=== PATIENT | male | born 1995 | race Caucasian/White ===

== ENCOUNTER 2020-07-22 19:18 | Emergency (ER) | payer OTHER ==
[~2020-07-22] VITALS: Ht 190.5 cm; Wt 108.9 kg
--- OUTSIDE RECORDS SUMMARY | ~2020-07-22 | XMS | Encounter Summary ---
Demographics + + + | Address | [address] | | | [place] [address] | + + + | Home Phone | | + + + | Preferred Language | Unknown | + + + | Marital Status | Single | + + + | Faith Affiliation | Unknown | + + + | Race | White | + + + | Ethnic Group | Unknown | + + + Author + + + | Author | [facility] | | | and [place] | + + + | Organization | [facility] | | | and [place] | + + + | Address | Unknown | + + + | Phone | Unavailable | + + + Care Team Providers + +------+ + | Care Client Hr Manager Name | Role | Phone | + +------+ + | Michelle Stein MD | PCP | | + +------+ + Encounter Details +--------+ + + + + | Date | Type | Department | Care Team | Description | +--------+ + + + + | 02/28/ | Orders Only | [facility] | Gomez Wilder | | | 2015 | | [facility] | [address] | | | | | [address] | [facility] | | | | | [place], [place] | [place] [address] | | | | | [address] | [phone] | | | | | [phone] | | | +--------+ + + + [...] | | | | | by [facility] [place] [facility], | | | | | | [facility] ([id number]), | | | | | | food expeditor Papa Salcido | | | | | [...]
--- OUTSIDE RECORDS SUMMARY | ~2020-07-22 | XMS | Encounter Summary ---
Demographics + + + | Address | [address] | | | [place] [address] | + + + | Home Phone | | + + + | Preferred Language | Unknown | + + + | Marital Status | Single | + + + | Anglican Affiliation | Unknown | + + + | Race | White | + + + | Ethnic Group | Unknown | + + + Author + + + | Author | [facility] | | | and [place] | + + + | Organization | [facility] | | | and [place] | + + + | Address | Unknown | + + + | Phone | Unavailable | + + + Care Team Providers + +------+ + | Care Preschool Program Director Name | Role | Phone | + [...] [address] | | | | | [place], [place] | [place] [address] | | | | | [address] | [phone] | | | | | [phone] | | | +--------+ + + + [...] arch are normal. MEASUREMENTS | | | Cellular Phone Repairer: ZHEN Authenticated by: Gomez Wilder DO Report [...] aortic arch are normal. MEASUREMENTS | | Cellular Phone Repairer: ZHENAutshaditicated by: Gomez Haywood Date/Time: 03-12-2016 23:46:56 [...] | |MEASUREMENTS | | | | | |Cellular Phone Repairer: DBS | |Authenticated by: Gomez Wilder DO | |Report Date/Time: 03-12-2016 23:46:56 | | | |IMPRESSION: | |1. Essentially normal study. | |2. See Dictation | + + documented in this encounter Visit Diagnoses Not on filedocumented in this encounter"
--- OUTSIDE RECORDS SUMMARY | ~2020-07-22 | XMS | Clinical Summary ---
Demographics + + + | Address | [address] | | | [place] [address] | + + + | Home Phone | | + + + | Preferred Language | Unknown | + + + | Marital Status | Single | + + + | Cheondoism Affiliation | Unknown | + + + | Race | White | + + + | Ethnic Group | Unknown | + + + Author + + + | Author | [facility] | | | and [place] | + + + | Organization | [facility] | | | and [place] | + + + | Address | Unknown | + + + | Phone | Unavailable | + + + Care Team Providers + +------+ + | Care Dot Compliance Coordinator Name | Role | Phone | + [...]
[~2020-07-22 19:18] MED LIST: NORCO 5-325 TA1 EACH PO
[2020-07-22] MEDS ORDERED: BACTRIM DS TAB1 EACH PO (19:50)
== END 2020-07-22 20:04 | disposition home or self-care (01) ==
LOC: ED 19:18
DX: S80.861A Insect bite (nonvenomous), right lower leg, initial encounter (principal); L08.9 Local infection of the skin and subcutaneous tissue, unspecified; W57.XXXA Bitten or stung by nonvenomous insect and other nonvenomous arthropods, initial encounter
CPT/HCPCS: 99283

== ENCOUNTER 2020-09-16 20:45 | Emergency (ER) | payer OTHER ==
[~2020-09-16] VITALS: Ht 190.5 cm; Wt 108.9 kg
--- OUTSIDE RECORDS SUMMARY | ~2020-09-16 | XMS | Encounter Summary ---
Demographics + + + | Address | [address] | | | [place] [address] | + + + | Home Phone | | + + + | Preferred Language | Unknown | + + + | Marital Status | Single | + + + | Episcopal Affiliation | Unknown | + + + | Race | White | + + + | Ethnic Group | Unknown | + + + Author + + + | Author | [facility] | | | and [place] | + + + | Organization | [facility] | | | and [place] | + + + | Address | Unknown | + + + | Phone | Unavailable | + + + Care Team Providers + +------+ + | Care Transition Mgr Name | Role | Phone | + +------+ + | Michelle Stein MD | PCP | | + +------+ + Encounter Details +--------+ + + + + | Date | Type | Department | Care Team | Description | +--------+ + + + + | 03/12/ | Orders Only | [facility] | Gomez Wilder | | | 2015 | | [address] | [address] | | | | | [place] | [place] [address] | | | | | [place], [place] | [place] [address] | | | | | [address] | [phone] | | | | | [phone] | | | +--------+ + + + + Social History + +-------+ +--------+------+ | Tobacco Use | Types | Packs/Day | Years | Date | | | | | Used | | + +-------+ +--------+------+ | Never Smoker | | | | | + +-------+ +--------+------+ + + + | Sex Assigned at | Date Recorded | | | | + + + | Not on file | | + + + documented as of this encounter Plan of Treatment Not on filedocumented as of this encounter Procedures + +--------+ + + + | Procedure Name | Priori | Date/Time | Associated Diagnosis | Comments | | | ty | | | | + +--------+ + + + | ECHO INTERPRETATION | Routin | 03/12/2016 | | Results for this | | OF OUTSIDE FILMS | e | 3:47 PM | | procedure are in the | | | | PDT | | results section. | + +--------+ + + + documented in this encounter Results ECHO Interpretation of Outside Films (03/12/2016 3:47 PM PDT) + + | Specimen | + + | | + + + + + | Impressions | Performed At | + + + | 1. Essentially normal study. 2. See Dictation | | + + + + + + | Narrative | Performed At | + + + | Patient Name: Jason Ortiz Date of : 1995 | | | Performing Physician: Gomez Wilder DO | | | | | | INDICATIONS murmur CONCLUSIONS 1. | | | Essentially normal study. 2. See Dictation FINDINGS -------- | | | ECG rhythm: Sinus rhythm. Study: This was a technically adequate | | | study. Left Ventricle: Left ventricular systolic function is | | | hyperdynamic with an estimated EF of >70%. Left Ventricle: The left | | | ventricle cavity size is normal. Left Ventricle: Left ventricular | | | wall thickness is normal. Left Ventricle: The diastolic filling | | | pattern is normal for the age of the patient. Right Ventricle: The | | | right ventricle is normal in size and function. Left Atrium: The left | | | atrium is normal in size. Right Atrium: The right atrium is normal | | | in size. Aortic Valve: The aortic valve is trileaflet, and appears | | | anatomically normal. No aortic stenosis or regurgitation. Mitral | | | Valve: The mitral valve is normal. Mitral Valve: There is trace | | | mitral regurgitation. Tricuspid Valve: The tricuspid valve appears | | | structurally normal. Tricuspid Valve: Trace tricuspid regurgitation | | | present. Pulmonic Valve: Pulmonic valve appears structurally normal. | | | Pulmonic Valve: Trace pulmonic regurgitation. Pericardium: There | | | is no pericardial effusion. IVC/Hepatic Veins: The IVC is normal size | | | (1.5-2.5cm) and collapses >50% with sniff, consistent with central | | | venous pressures of 5-10mmHg. Aorta: The aortic root, ascending aorta | | | and aortic arch are normal. MEASUREMENTS | | | Transmission Systems Operator: ZHEN Authenticated by: Gomez Wilder DO Report | | | Date/Time: 03-12-2016 23:46:56 | | + + + + + | Procedure Note | + + | Jl Lockett Conversion - 07/16/2019 9:18 PM PDT Patient Name: Michelle OrtizSanjeev of | | : 1995 Performing Physician: Gomez Wilder | | DO INDICATIONS m | | urmur CONCLUSIONS 1. Essentially normal study.2. See Dictation | | FINDINGS--------ECG rhythm: Sinus rhythm.Study: This was a technically adequate | | study.Left Ventricle: Left ventricular systolic function is hyperdynamic with an | | estimated EF of >70%.Left Ventricle: The left ventricle cavity size is normal.Left | | Ventricle: Left ventricular wall thickness is normal.Left Ventricle: The diastolic | | filling pattern is normal for the age of the patient.Right Ventricle: The right | | ventricle is normal in size and function.Left Atrium: The left atrium is normal in | | size.Right Atrium: The right atrium is normal in size.Aortic Valve: The aortic valve is | | trileaflet, and appears anatomically normal. No aortic stenosis or regurgitation.Mitral | | Valve: The mitral valve is normal.Mitral Valve: There is trace mitral | | regurgitation.Tricuspid Valve: The tricuspid valve appears structurally normal.Tricuspid | | Valve: Trace tricuspid regurgitation present.Pulmonic Valve: Pulmonic valve appears | | structurally normal.Pulmonic Valve: Trace pulmonic regurgitation.Pericardium: There is | | no pericardial effusion.IVC/Hepatic Veins: The IVC is normal size (1.5-2.5cm) and | | collapses >50% with sniff, consistent with central venous pressures of 5-10mmHg.Aorta: | | The aortic root, ascending aorta and aortic arch are normal. MEASUREMENTS | | Transmission Systems Operator: ZHENAutshaditicated by: Gomez Haywood Date/Time: 03-12-2016 23:46:56 | | IMPRESSION: 1. Essentially normal study.2. See Dictation | |Left Ventricle: Left ventricular systolic function is hyperdynamic with an estimated EF of >70%. | |Left Ventricle: The left ventricle cavity size is normal. | |Left Ventricle: Left ventricular wall thickness is normal. | |Left Ventricle: The diastolic filling pattern is normal for the age of the patient. | |Right Ventricle: The right ventricle is normal in size and function. | |Left Atrium: The left atrium is normal in size. | |Right Atrium: The right atrium is normal in size. | |Aortic Valve: The aortic valve is trileaflet, and appears anatomically normal. No aortic st enosis or regurgitation. | |Mitral Valve: The mitral valve is normal. | |Mitral Valve: There is trace mitral regurgitation. | |Tricuspid Valve: The tricuspid valve appears structurally normal. | |Tricuspid Valve: Trace tricuspid regurgitation present. | |Pulmonic Valve: Pulmonic valve appears structurally normal. | |Pulmonic Valve: Trace pulmonic regurgitation. | |Pericardium: There is no pericardial effusion. | |IVC/Hepatic Veins: The IVC is normal size (1.5-2.5cm) and collapses >50% with sniff, consis tent with central venous pressures of 5-10mmHg. | |Aorta: The aortic root, ascending aorta and aortic arch are normal. | | | |MEASUREMENTS | | | | | |Transmission Systems Operator: DBS | |Authenticated by: Gomez Wilder DO | |Report Date/Time: 03-12-2016 23:46:56 | | | |IMPRESSION: | |1. Essentially normal study. | |2. See Dictation | + + documented in this encounter Visit Diagnoses Not on filedocumented in this encounter"
--- OUTSIDE RECORDS SUMMARY | ~2020-09-16 | XMS | Encounter Summary ---
Demographics + + + | Address | [address] | | | [place] [address] | + + + | Home Phone | | + + + | Preferred Language | Unknown | + + + | Marital Status | | + + + | Shinto Affiliation | NRP | + + + | Race | White | + + + | Ethnic Group | Not or | + + + Author + + + | Organization | Unknown | + + + | Address | Unknown | + + + | Phone | Unavailable | + + + Support + + +---------+ + | Name | Relationship | Address | Phone | + + +---------+ + | Stefanie Ortiz | ECON | Unknown | | + + +---------+ + Care Team Providers + +------+ + | Care Automotive Starter Repairer Name | Role | Phone | + +------+ + | No Pcp Per Patient | PCP | Unavailable | + +------+ + Encounter Details +--------+--------+ + + + | Date | Type | Department | Care Team | Description | +--------+--------+ + + + | 08/02/ | Travel | | | | | 2019 | | | | | +--------+--------+ + + + Social History + +-------+ +--------+------+ | Tobacco Use | Types | Packs/Day | Years | Date | | | | | Used | | + +-------+ +--------+------+ | Never Smoker | | | | | + +-------+ +--------+------+ + +---+---+---+ | Smokeless Tobacco: | | | | | Never Used | | | | + +---+---+---+ + + +---------+ + | Alcohol Use | Drinks/Week | oz/Week | Comments | + + +---------+ + | Never | | | | + + +---------+ + + + + + | Alcohol Habits | Answer | Date Recorded | + + + + | How often do you have a drink containing | Never | 06/26/2019 | | alcohol? | | | + + + + | How many drinks containing alcohol do you | Not asked | | | have on a typical day when you are | | | | drinking? | | | + + + + | How often do you have six or more drinks on | Not asked | | | one occasion? | | | + + + + + + + | Sex Assigned at | Date Recorded | | | | + + + | Not on file | | + + + documented as of this encounter Plan of Treatment Not on filedocumented as of this encounter Visit Diagnoses Not on filedocumented in this encounter"
--- OUTSIDE RECORDS SUMMARY | ~2020-09-16 | XMS | Encounter Summary ---
Demographics + + + | Address | [address] | | | [place] [address] | + + + | Home Phone | | + + + | Preferred Language | Unknown | + + + | Marital Status | Single | + + + | Shinto Affiliation | Unknown | + + + | Race | White | + + + | Ethnic Group | Unknown | + + + Author + + + | Author | [facility] | | | and [place] | + + + | Organization | [facility] | | | and [place] | + + + | Address | Unknown | + + + | Phone | Unavailable | + + + Care Team Providers + +------+ + | Care Relief Worker Name | Role | Phone | + +------+ + | Michelle Stein MD | PCP | | + +------+ + Encounter Details +--------+ + + + + | Date | Type | Department | Care Team | Description | +--------+ + + + + | 02/28/ | Orders Only | [facility] | Gomez Wilder | | | 2015 | | [facility] | [address] | | | | | [address] | [facility] | | | | | [place], [place] | [place] [address] | | | | | [address] | [phone] | | | | | [phone] | | | +--------+ + + + [...] | + +--------+ + + + | ECG 12 LEAD | Routin | 02/29/2016 | | Results for this | | | e | 4:38 PM | | procedure are in the | | | | PDT | | results section. | + +--------+ + + + documented in this encounter Results ECG 12 lead (02/29/2016 4:38 PM PDT) + + + + + + | Component | Value | Ref Range | Performed | Pathologist | | | | | At | Signature | + + + + + + | DIAGNOSIS: | Sinus bradycardiaEarly | | EXTERNAL | | | | repolarizationOtherwise | | LAB | | | | normal ECGNo previous | | | | | | ECGs availablePlease | | | | | | refer to Providers | | | | | | office visit note for | | | | | | Providers | | | | | | Interpretation.Confirmed | | | | | | by [facility] [place] Read Only, | | | | | | [facility] ([id number]), | | | | | | editorial clerk Papa Salcido | | | | | | (253) on 07/02/2016 | | | | | | 12:49:13 PM | | | | + + + + + + + + | Specimen | + + | | + + + + + | Narrative | Performed At | + + + | Historically converted procedure from [facility] [employer] environment | EXTERNAL LAB | + + + + +---------+ + + | Performing | Address | City/State/Zipcode | Phone Number | | Organization | | | | + +---------+ + + | EXTERNAL LAB | | | | + +---------+ + + documented in this encounter Visit Diagnoses Not on filedocumented in this encounter"
--- OUTSIDE RECORDS SUMMARY | ~2020-09-16 | XMS | Clinical Summary ---
Demographics + + + | Address | [address] | | | [place] [address] | + + + | Home Phone | | + + + | Preferred Language | Unknown | + + + | Marital Status | Single | + + + | Taoist Affiliation | Unknown | + + + | Race | White | + + + | Ethnic Group | Unknown | + + + Author + + + | Author | [facility] | | | and [place] | + + + | Organization | [facility] | | | and [place] | + + + | Address | Unknown | + + + | Phone | Unavailable | + + + Care Team Providers + +------+ + | Care Music Therapist Name | Role | Phone | + +------+ + | Michelle Stein MD | PCP | | + +------+ + Allergies Not on File Medications Not on file Active Problems Not on file Family History + + +------+ + | Medical History | Relation | Name | Comments | + + +------+ + | Cancer | Maternal | | | | | Grandfath | | | | | er | | | + + +------+ + | Hypertension | Maternal | | | | | Grandmoth | | | | | er | | | + + +------+ + | Cancer | Paternal | | | | | Grandmoth | | | | | er | | | + + +------+ + | Diabetes, NIDDM | Paternal | | | | | Grandmoth | | | | | er | | | + + +------+ + | Heart disease | Paternal | | | | | Grandmoth | | | | | er | | | + + +------+ + + +------+ + + | Relation | Name | Status | Comments | + +------+ + + | Father | | | DMII,cirrhosis of liver, (alcoholism), HTN | | | | (Age | | | | | 49) | | + +------+ + + | Maternal Grandfather | | Alive | prostate cancer | + +------+ + + | Maternal Grandfather | | | | + +------+ + + | Maternal Grandmother | | Alive | HTN | + +------+ + + | Maternal Grandmother | | | | + +------+ + + | Mother | | Alive | 43 yrs., Migraine Headaches | + +------+ + + | Paternal Grandfather | | | Parkinsons Disease | | | | (Age | | | | | 72) | | + +------+ + + | Paternal Grandmother | | | Lung Cancer (smoker),DMII, heart disease | | | | (Age | | | | | 77) | | + +------+ + + | Paternal Grandmother | | | | + +------+ + + Social History + +-------+ +--------+------+ [...] on file | | + + + Last Filed Vital Signs + + + + + | Vital Sign | Reading | Time Taken | Comments | + + + + + | Blood Pressure | 126/58 | 02/29/2016 4:14 PM | | | | | PDT | | + + + + + | Pulse | 58 | 02/29/2016 4:14 PM | | | | | PDT | | + + + + + | Temperature | - | - | | + + + + + | Respiratory Rate | 16 | 02/29/2016 4:14 PM | | | | | PDT | | + + + + + | Oxygen Saturation | - | - | | + + + + + | Inhaled Oxygen | - | - | | | Concentration | | | | + + + + + | Weight | 95.3 kg (210 lb) | 02/29/2016 4:14 PM | | | | | PDT | | + + + + + | Height | 185.4 cm (6' 1") | 02/29/2016 4:14 PM | | | | | PDT | | + + + + + | Body Mass Index | 27.71 | 02/29/2016 4:14 PM | | | | | PDT | | + + + + + Plan of Treatment + + +-------+ + | Health Maintenance | Due Date | Last | Comments | | | | Done | | + + +-------+ + | Vaccine: | | | | | Dtap/Tdap/Td (1 - | 7 | | | | Tdap) | | | | + + +-------+ + | Vaccine: Influenza | | | | | (#1) | 0 | | | + + +-------+ + Results Not on filefrom Last 3 Months
--- OUTSIDE RECORDS SUMMARY | ~2020-09-16 | XMS | Encounter Summary ---
Demographics + + + | Address | [address] | | | [place] [address] | + + + | Home Phone | | + + + | Preferred Language | Unknown | + + + | Marital Status | | + + + | Denominational Affiliation | NRP | + + + | Race | White | + + + | Ethnic Group | Not or | + + + Author + + + | Author | [facility] | + + + | Organization | [facility] | + + + | Address | Unknown | + + + | Phone | Unavailable | + + + Support + + +---------+ + | Name | Relationship | Address | Phone | + + +---------+ + | Stefanie Ortiz | ECON | Unknown | | + + +---------+ + Care Team Providers + +------+ + | Care Supervisor Patching Name | Role | Phone | + +------+ + | No Pcp Per Patient | PCP | Unavailable | + +------+ + Reason for Visit + + + | Reason | Comments | + + + | Skin problem | | + + + | Referral | | + + + AUTH/CERT +--------+--------+ + + + + | Status | Reason | Specialty | Diagnoses / | Referred By | Referred To | | | | | Procedures | Contact | Contact | +--------+--------+ + + + + | | | | | | | +--------+--------+ + + + + Encounter Details +--------+ + + + + | Date | Type | Department | Care Team | Description | +--------+ + + + + | 06/26/ | Emergency | [facility] Emergency | Wilfred Davis MD | | | 2019 | | Department [address] | [address] | | | | | [place] | [facility] | | | | | [facility] | [place], [place] | | | | | [place], [place] | [address] | | | | | [address] | [phone] | | | | | [phone] | | | | | | | Delfina Yun, | | | | | | [place] [address] | | | | | | [facility] | | | | | | [place], [place] | | | | | | [address] | | | | | | [phone] | | | | | | | | +--------+ + + + [...] + + documented as of this encounter Last Filed Vital Signs + + + + + | Vital Sign | Reading | Time Taken | Comments | + + + + + | Blood Pressure | 116/64 | 06/26/2019 6:46 PM | | | | | PDT | | + + + + + | Pulse | 93 | 06/26/2019 2:18 PM | | | | | PDT | | + + + + + | Temperature | 37.6 C (99.7 F) | 06/26/2019 6:11 PM | | | | | PDT | | + + + + + | Respiratory Rate | 16 | 06/26/2019 6:46 PM | | | | | PDT | | + + + + + | Oxygen Saturation | 100% | 06/26/2019 6:45 PM | | | | | PDT | | + + + + + | Inhaled Oxygen | - | - | | | Concentration | | | | + + + + + | Weight | 95.5 kg (210 lb 8 | 06/26/2019 2:18 PM | | | | oz) | PDT | | + + + + + | Height | 190.5 cm (6' 3") | 06/26/2019 2:18 PM | | | | | PDT | | + + + + + | Body Mass Index | 26.31 | 06/26/2019 2:18 PM | | | | | PDT | | + + + + + documented in this encounter Discharge Instructions Instructions Jennifer Kraft MD - 06/26/2019Thank you for coming to the [facility] ED. You were s een today for right elbow pain and swelling. You were seen by our orthopaedic team who felt you have olecranon bursitis. They recommended antibiotics and follow up in clinic within the next week, please call the number attached to make a follow up appointment. You are being d ischarged with keflex and bactrim, antibiotics to treat your infection. Please continue to treat your pain with ibuprofen 600mg and tylenol 650mg every 6-8 hours. You are also being discharged with a prescription for oxycodone, an opiate pain medication, for breakthrough pain. Please return either to the ED or urgent care for a wound re-evaluation tomorrow to ensure the infection has not worsened. Return sooner if you develop fevers, chills, nausea, worseni ng redness or swelling, or any other concerning symptoms. I hope you are feeling better soon ! AttachmentsThe following attachments cannot be sent through Care Everywhere.Cellulitis (Eng codie)Elbow Bursitis: Exercises (Luxembourger)documented in this encounter Medications at Time of Discharge + + + +---------+ + + | Medication | Sig | Dispensed | Refills | Start | End Date | | | | | | Date | | + + + +---------+ + + | acetaminophen 500 | Take 500 mg by mouth | | 0 | | | | mg oral tablet | every six hours as | | | | | | | needed. | | | | | + + + +---------+ + + | oxyCODONE | Take 1 tablet by | 8 | 0 | 06/26/20 | | | (immediate release) | mouth every six | tablet | | 19 | | | 5 mg oral tablet | hours as needed for | | | | | | | breakthrough pain. | | | | | + + + +---------+ + + | cephALEXin 500 mg | Take 1 capsule by | 28 | 0 | 06/26/20 | | | oral capsule | mouth every six | capsule | | 19 | 9 | | | hours for 7 days. | | | | | + + + +---------+ + + | | Take 1 tablet by | 14 | 0 | 06/26/20 | | | trimethoprim-sulfame | mouth two times | tablet | | 19 | 9 | | thoxazole 160-800 mg | daily for 7 days. | | | | | | oral tablet | | | | | | + + + +---------+ + + documented as of this encounter Consult Notes Kamryn Nelson MD - 06/26/2019 6:07 PM PDTAssociated Order(s): IP CONSULT TO ORTHOPED IC SURGERY [facility] DEPARTMENT OF ORTHOPAEDICS & REHABILITATION HISTORY & PHYSICAL EXAMINATION Patient: Jason Ortiz Encounter Date: 06/26/2019 Attending Physician: Domingo Moran MD Patient seen within 10 minutes of receiving consult HISTORY OF PRESENT ILLNESS: Jason Ortiz is a 23 y.o. M who presents with 3 days of right elbow pain, swelling, an d purulent drainage. Per patient, this began after he popped a pimple on his elbow. PAST MEDICAL HISTORY: No past medical history on file. PAST SURGICAL HISTORY: Past Surgical History: Procedure Laterality Date HYDROCELE EXCISION SOCIAL HISTORY: reports that he has never smoked. He has never used smokeless tobacco., reports that he d oes not drink alcohol., reports that he does not use drugs. MEDICATIONS: Prior to Admission Medications Prescriptions acetaminophen 500 mg oral tablet Sig: Take 500 mg by mouth every six hours as needed. Facility-Administered Medications: None ALLERGIES: has No Known Allergies. FAMILY HISTORY: not reviewed REVIEW OF SYSTEMS: A 10 point review of systems was completed and the pertinent positives and negatives are no brigitte above in the history of present illness. PHYSICAL EXAMINATION VITALS: Pulse: 93 BP: 141/78 Temp: 36.8 C (98.2 F) SpO2: 100 % Resp: 16 GENERAL: appropriate, oriented CARD/PULM: appropriate effort, not auscultated RIGHT UPPER EXTREMITY: Inspection: Erythema, edema, fluctuance over olecranon bursa. Some drainage. Swelling appea rs isolated to the posterior elbow. Palpation: tender to palpation at posterior elbow ROM: limited by pain Motor: makes OK sign, crosses and abducts fingers, gives thumbs up, fires wrist extensors, fires wrist flexors, fires biceps, fires triceps, fires deltoid Sensory: grossly intact to light touch, median, ulnar, radial, axillary Vascular: palpable radial, digits warm, well perfused, capillary refill <2 sec Reflexes: not performed LABORATORY DATA: Lab Results Component Value Date/Time NA 136 06/26/2019 02:27 PM K 4.0 06/26/2019 02:27 PM CR 0.86 06/26/2019 02:27 PM HCT 38.6 (L) 06/26/2019 02:27 PM WBC 13.04 (H) 06/26/2019 02:27 PM PLT 212 06/26/2019 02:27 PM ESR 71 (H) 06/26/2019 02:40 PM CRP 120.0 (H) 06/26/2019 02:27 PM DIAGNOSTIC IMAGING: xrays elbow, per my read demonstrate: no acute fracture/dislocation ASSESSMENT: Jason Ortiz is a 23 y.o. M with the following orthopaedic injuries/concerns: R olecra non bursitis PLAN: --abx per primary --volar resting slab splint placed for soft tissue rest --follow up within 1 week in clinic Follow up:Please call the clinic to make a follow up appointment in approximately 1 [facility] ORTHO [facility] FRACTURE, . Lydia Nelson. The orthopaedics consult pager is #[phone], please call with questions. This plan was discussed with Dr. Velazquez (resident), Dr. Oquendo (chief resident), and Dr. Abhinav palomo (attending). Kamryn Nelson MD Orthopaedic Surgery resident 7 :38 AM PDTdocumented in this encounter ED Notes Gomez Cooney RN - 06/26/2019 6:57 PM PDTRN Discharge Note: Condition at time of discharge: Patient A&O x4, vital signs stable, appears in no acute di stress and pain reported as tolerable. Patient ambulating with steady gait. Discharge instructions: Patient provided discharge instructions. Understanding of instruct ions is evidenced by review of follow-up plan and voiced understanding of plan of care. Wri tten discharge instructions provided and reviewed. Prescriptions provided and reviewed. Galina ent advised not to drive. Destination: Patient discharged to home via POV with self and significant other. Education provided to the patient/family: n/a Char Royal RN - 0 06/26/2019 5:20 PM PDTOrtho at bedside at this time. Char Royal RN - 06/26/2019 4:30 PM PDTOrtho at bedside at this time. ilfred Davis MD - 06/26/2019 3:44 PM PDT ED Shared Provider Note, co-authored by Dr. Dave Kraft and WILFRED DAVIS MD: Wilfred Davis MD, EM Faculty Note: I saw and evaluated the patient, discussed the diagnosis, management, and interpretation of results with the Resident. I performed and confirmed the wall portions of the service. The n ote detailed below was created by both the resident and myself. I agree with the documentat ion findings and plan of care. I contributed to multiple sections of the shared note. HPI 23 y/o man who presents as referral for right elbow swelling. Pt states had 'a white head o n my elbow' that he 'popped' 4 days ago, after which his elbow became increasingly red and s wollen. Difficulty moving elbow and increasing pain - particularly worse last night into tod ay. Pt unable to straighten elbow, but does have approx 60 degrees movement. Using tylenol f or pain. Some chills, subjective fevers. Has been taking 4 tabs tylenol per day. Pt seen in walk-in clinic today - referred directly to ED. No abx yet. PCP: No Pcp Per PATIENT Pmhx: -none Past Surgical History Procedure Date Hydrocele excision Medications Prior to Admission Medications Prescriptions Last Dose Informant Patient Reported? Taking? acetaminophen 500 mg oral tablet 06/26/2019 at Unknown time Yes Yes Sig: Take 500 mg by mouth every six hours as needed. Facility-Administered Medications: None Allergies No Known Allergies Social History reports that he has never used tobacco. he reports that he drinks alcohol. he reports th at he uses drugs. Family History Problem Relation No Known Problems Mother Liver Disease Father No Known Problems Brother No Known Problems Brother Review of Systems Complete ROS performed and negative except as noted in HPI. ED Triage Vitals BP Temp Heart Rate Pulse - Plethysmograph Resp SpO2 06/26/19 1418 06/26/19 1418 06/26/19 1418 06/26/19 1811 06/26/19 1418 06/26/19 1418 141/78 36.8 C (!) 93 89 pulses/min 16 100 % Physical Exam Constitutional: He is oriented to person, place, and time. He appears well-developed and we ll-nourished. No distress. nontoxic HENT: Head: Normocephalic and atraumatic. Eyes: Conjunctivae and EOM are normal. Neck: Normal range of motion. Neck supple. Cardiovascular: Normal rate, regular rhythm, normal heart sounds and intact distal pulses. Pulmonary/Chest: Effort normal and breath sounds normal. No respiratory distress. Abdominal: Soft. He exhibits no distension. There is no tenderness. Musculoskeletal: Erythema, edema, tenderness, induration over posterior elbow with 0.5cm area of open draina ge. Holds elbow at 90 degrees with pain limited ROM Neurological: He is alert and oriented to person, place, and time. No cranial nerve deficit . He exhibits normal muscle tone. Skin: Skin is warm and dry. Nursing note and vitals reviewed. Lab Results Results for orders placed or performed during the hospital encounter of 06/26/19 COMPLETE METABOLIC SET (NA,K,CL,CO2,BUN,CREAT,GLUC,CA,AST,ALT,BILI TOTAL,ALK PHOS,ALB,PROT TOTAL) Result Value Ref Range GLUCOSE, PLASMA (LAB) 76 70 - 99 mg/dL BUN, PLASMA (LAB) 13 6 - 20 mg/dL CREATININE PLASMA (LAB) 0.86 0.70 - 1.30 mg/dL EGFR - LIBYAN >60 >60 mL/min EGFR NON -LIBYAN >60 >60 mL/min SODIUM, PLASMA (LAB) 136 136 - 145 mmol/L POTASSIUM, PLASMA (LAB) 4.0 3.4 - 5.0 mmol/L CHLORIDE, PLASMA (LAB) 103 97 - 108 mmol/L TOTAL CO2, PLASMA (LAB) 27 21 - 32 mmol/L CALCIUM, PLASMA (LAB) 9.7 8.6 - 10.2 mg/dL CALCIUM(ALB CORRECTED) 9.5 8.6 - 10.2 mg/dL BILIRUBIN TOTAL 0.6 0.3 - 1.2 mg/dL TOTAL PROTEIN, PLASMA (LAB) 8.4 (H) 6.4 - 8.2 g/dL ALBUMIN, PLASMA (LAB) 4.3 3.5 - 4.7 g/dL ALK PHOS 48 (L) 53 - 128 U/L AST(SGOT) 15 <=41 U/L ALT (SGPT) 25 <=60 U/L ANION GAP 6 4 - 11 mmol/L ANION GAP(ALB CORRECTED) 5 4 - 11 mmol/L POTASSIUM CMNT No Hemo BILI T CMNT No Hemo AST CMNT No Hemo BLOOD BANK HOLD TUBE - DON T PROCESS Result Value Ref Range SPECIMEN COLLECTED, HELD Sample received with adeq label/volume to process SEDIMENTATION RATE Result Value Ref Range SEDIMENTATION RATE 71 (H) 0 - 15 mm/hr C-REACTIVE PROTEIN Result Value Ref Range C-REACTIVE PROTEIN 120.0 (H) <10.0 mg/L CBC AND AUTO DIFF Result Value Ref Range WHITE CELL COUNT 13.04 (H) 3.50 - 10.80 K/cu mm RED CELL COUNT 4.33 (L) 4.50 - 6.00 M/cu mm HEMOGLOBIN 13.2 (L) 13.5 - 17.5 g/dL HEMATOCRIT 38.6 (L) 41.0 - 53.0 % MCV 89.1 80.0 - 100.0 fL MCHC 34.2 32.0 - 36.0 g/dL RDW SD 37.1 35.1 - 46.3 fL PLATELET COUNT 212 150 - 400 K/cu mm MPV 9.4 (L) 9.7 - 12.3 fL NRBC% 0.0 0.0 - 0.3 % NRBC# 0.00 0.00 - 0.02 K/cu mm NEUTROPHIL % 77.7 (H) 50.0 - 70.0 % LYMPHOCYTE % 12.3 (L) 18.0 - 42.0 % MONOCYTE % 9.3 (H) 3.5 - 9.0 % EOS % 0.1 (L) 1.0 - 3.0 % BASO % 0.2 0.0 - 2.0 % IG% 0.4 0.0 - 1.0 % NEUTROPHIL # 10.15 (H) 1.80 - 7.70 K/cu mm LYMPHOCYTE # 1.60 1.00 - 4.80 K/cu mm MONOCYTE # 1.21 (H) 0.10 - 0.90 K/cu mm EOS # 0.01 0.00 - 0.50 K/cu mm BASO # 0.02 0.00 - 0.10 K/cu mm IG# 0.05 0.00 - 0.10 K/cu mm Imaging Results (last 24 hours) X-ray Elbow 3 Views Right Result Date: 06/26/2019 EXAM: ELBOW 3 VIEWS RIGHT HISTORY: concern for septic joint, swelling and pain to area CO MPARISON: None. FINDINGS: There is diffuse soft tissue swelling about the upper arm, elbow and forearm. No radiodense foreign bodies. No significant elbow joint effusion. No acute fr acture or malalignment. No radiographic evidence of erosions. IMPRESSION: Diffuse soft tis karon swelling without superimposed acute osseous abnormality or elbow joint effusion. I have personally reviewed the images and, if necessary, edited the report. I agree with the repor t as now presented. Final signature: Levi Petersen MD 06/26/2019 3:24 PM Preliminary: Jermaine Petersen MD Dictation initiated: Levi Petersen MD 06/26/2019 3:23 PM Crime Prevention Worker: ortho. ED COURSE AND MEDICAL DECISION MAKING: Medical Decision Making: Jason Ortiz is a 23 y.o. male presenting with right elbow redness and swelling. Marleny ls notable for mild tachycardia, BP wnl, afebrile. The physical exam was notable for the following: as above, non toxic with right posterior e lbow diffusely erythematous and edematous with pain limited ROM. A review of some of patient s prior medical records was performed using chart review and Care Everywhere. Given the patient's history and exam, initial differential diagnosis includes but is not li mited to: cellulitis, abscess, olecranon bursitis, septic elbow. Will plan to obtain XR, labs, and consult ortho. Laboratory and imaging results were reviewed and interpreted, and notable for the following : ED Course as of Jun 27 1123SatJun 26, 2019 1605 Right Elbow XR FINDINGS: There is diffuse soft tissue swelling about the upper arm, elbow and forearm. No radiodense foreign bodies. No significant elbow joint effusion. No acute fracture or malalignment. No radiographic evidence of erosions. IMPRESSION: Diffuse soft tissue swelling without superimposed acute osseous abnormality or elbow joint effusion. [HW] 1605 SEDIMENTATION RATE(!): 71 [HW] 1605 WHITE CELL COUNT(!): 13.04 [HW] 1607 CMP with no acute electrolyte abnormality, renal function WNL [HW] 1617 Consulted ortho, will evaluate patient [HW] 1713 Ortho feels presentation is most consistent with olecranon bursitis. Agree with ED obs admission for IV abx [HW] 1808 Offered patient ED observation admission. He discussed this with his , and they de cided that he would like to discharge home with antibiotics and pain medication with follow up with ortho clinic. [HW] ED Course User Index [HW] Jennifer Kraft MD We opted not to perform an arthrocentesis, as lower suspicion of septic joint and erythema throughout elbow (risk of seeding joint exceed probability of benefit of tap). After orthopedic consultation, our plan was to admit the patient to the ED observation unit for multiple doses of IV antibiotics and reevaluation for clinical improvement. Initial IV abx given in ED. However, the patient did not want to be admitted to the hospital and accep brigitte the accordant risks of oral abx and home management. Discussed findings with patient, an d management with bactrim and kelfex. Discussed strict return precautions and need for close follow up, advised patient to return to the ED within 24 hours, so I can perform wound re-c heck, and follow up in ortho clinic within 1 week. Patient voiced understanding and was comf ortable with discharge at this time. Repeat vitals: BP 116/64 | Pulse (!) 93 | Temp 37.6 C (Oral) | Resp 16 | Ht 1.905 m ( 6' 3") | Wt 95.5 kg (210 lb 8 oz) | SpO2 100% | BMI 26.31 kg/m | BSA 2.25 m Given this, we felt patient was stable for discharge. ED Medication Administration from 06/26/2019 1410 to 06/27/2019 1123 Date/Time Order Dose Route Action 06/26/2019 1752 ceFAZolin IV 2 gram in dextrose (RTU) 2 g intravenous New Bag 06/26/2019 1630 HYDROmorphone (DILAUDID) injection 0.5 mg 0.5 mg intravenous Given 06/26/2019 1843 HYDROmorphone (DILAUDID) injection 0.5 mg 0.5 mg intravenous Given 06/26/2019 1628 lactated ringers IV 1,000 mL intravenous New Bag 06/26/2019 1629 ondansetron (ZOFRAN) injection 4 mg 4 mg intravenous Given 06/26/2019 1749 trimethoprim-sulfamethoxazole (BACTRIM DS,SEPTRA DS) 160-800 mg tablet 1 t ablet 1 tablet oral Given IMPRESSION: M70.21 Olecranon bursitis of right elbow L03.113 Cellulitis of right upper extremity PLAN, DISPOSITION AND FOLLOW-UP: - discharge - bactrim, keflex - wound re-eval tomorrow - follow up with ortho within 1 week Discharge Medication List as of 06/26/2019 6:46 PM START taking these medications Details cephALEXin 500 mg oral capsule Take 1 capsule by mouth every six hours for 7 days., Disp-28 capsule, R-0, Print Prescription oxyCODONE (immediate release) 5 mg oral tablet Take 1 tablet by mouth every six hours as ne eded for breakthrough pain., Disp-8 tablet, R-0Schedule IIPrint Prescription trimethoprim-sulfamethoxazole 160-800 mg oral tablet Take 1 tablet by mouth two times daily for 7 days., Disp-14 tablet, R-0, Print Prescription Jennifer Kraft MD Emergency Medicine PGY-3 Wilfred Davis MD, MPH Professor, Department of Emergency Medicine [employer] In this note documentation noting the patient's drug/alcohol use may be incorrect. Review p atient's history. HIM Admin 01/22/20 0852 Tracee Gabriel RN - 06/26/2019 2:20 PM PDTReferral note reviewed. Pt R elbow swollen and painful now, wrapped i n gauze dressing. Good CMS intact to RUEElectronically signed by Tracee Escoto RN at 12/2018 2:22 PM PDTdocumented in this encounter Miscellaneous Notes ED Teaching Notes - Wilfred Davis MD - 06/26/2019 6:58 PM PDTNo separate teaching note - see shared resident/faculty Provider note. ransfer Note - Be Fraga PA-C - 06/26/2019 1:31 PM PDTNP [facility] 23 y/o M R elbow swelling and pain x 1 week after popping a pimple. Now has drainage, warmt h, swelling and ttp. Cannot extend elbow. Vitals unremarkable. Concern over cellulitis vs septic olecranon arthritis. Coming via POV. Be William PA-C [facility] Emergency Department omm [place] - Chanel Bustamante - 06/26/2019 1:30 PM PDTConnected ref to JAMEY Phan (ed obs) C/o Septic documented in th is encounter Plan of Treatment Not on filedocumented as of this encounter Procedures + +--------+ + + + | Procedure Name | Priori | Date/Time | Associated Diagnosis | Comments | | | ty | | | | + +--------+ + + + | X-RAY ELBOW 3 VIEWS | Urgent | 06/26/2019 | | Results for this | | RIGHT | | 3:10 PM | | procedure are in the | | | | PDT | | results section. | + +--------+ + + + | SEDIMENTATION RATE | Urgent | 06/26/2019 | | Results for this | | | | 2:40 PM | | procedure are in the | | | | PDT | | results section. | + +--------+ + + + | RAINBOW HOLD TUBE - | Urgent | 06/26/2019 | | | | RED TOP | | 2:30 PM | | | | | | PDT | | | + +--------+ + + + | RAINBOW HOLD TUBE - | Urgent | 06/26/2019 | | | | BLUE TOP | | 2:30 PM | | | | | | PDT | | | + +--------+ + + + | RAINBOW HOLD, CORE | Urgent | 06/26/2019 | | Results for this | | PANEL | | 2:30 PM | | procedure are in the | | | | PDT | | results section. | + +--------+ + + + | BLOOD BANK HOLD TUBE | Urgent | 06/26/2019 | | Results for this | | - DON | | 2:30 PM | | procedure are in the | | | | PDT | | results section. | | T PROCESS | | | | | + +--------+ + + + | CBC AND AUTO DIFF | Urgent | 06/26/2019 | | Results for this | | | | 2:27 PM | | procedure are in the | | | | PDT | | results section. | + +--------+ + + + | CBC, WITH | Urgent | 06/26/2019 | | Results for this | | DIFFERENTIAL | | 2:27 PM | | procedure are in the | | | | PDT | | results section. | + +--------+ + + + | COMPLETE METABOLIC | Urgent | 06/26/2019 | | Results for this | | SET | | 2:27 PM | | procedure are in the | | (NA,K,CL,CO2,BUN,CRE | | PDT | | results section. | | AT,GLUC,CA,AST,ALT,B | | | | | | RICHARD TOTAL,ALK | | | | | | PHOS,ALB,PROT TOTAL) | | | | | + +--------+ + + + | C-REACTIVE PROTEIN | Urgent | 06/26/2019 | | Results for this | | | | 2:27 PM | | procedure are in the | | | | PDT | | results section. | + +--------+ + + + documented in this encounter Results X-RAY ELBOW 3 VIEWS RIGHT (06/26/2019 3:10 PM PDT) + + | Specimen | + + | | + + + + + | Narrative | Performed At | + + + | EXAM: ELBOW 3 VIEWS RIGHT HISTORY: concern for septic joint, | [facility] | | swelling and pain to area COMPARISON: None. FINDINGS: | RADIOLOGY VOICE | | There is diffuse soft tissue swelling about the upper arm, elbow and | RECOGNITION 2 | | forearm. No radiodense foreign bodies. No significant elbow joint | | | effusion. No acute fracture or malalignment. No radiographic evidence | | | of erosions. IMPRESSION: Diffuse soft tissue swelling without | | | superimposed acute osseous abnormality or elbow joint effusion. I | | | have personally reviewed the images and, if necessary, edited the | | | report. I agree with the report as now presented. Final | | | signature: Levi Petersen MD 06/26/2019 3:24 PM Preliminary: | | | Levi Petersen MD Dictation initiated: Levi Petersen MD | | | 06/26/2019 3:23 PM | | + + + + + | Procedure Note | + + | Service Account, Radiant Res In Interface - 06/26/2019 3:25 PM PDT EXAM: ELBOW 3 | | VIEWS RIGHT HISTORY: concern for septic joint, swelling and pain to area COMPARISON: | | None. FINDINGS: There is diffuse soft tissue swelling about the upper arm, elbow and | | forearm. No radiodense foreign bodies. No significant elbow joint effusion. No acute | | fracture or malalignment. No radiographic evidence of erosions. IMPRESSION: Diffuse soft | | tissue swelling without superimposed acute osseous abnormality or elbow joint effusion. | | I have personally reviewed the images and, if necessary, edited the report. I agree | | with the report as now presented. Final signature: Levi Petersen MD 06/26/2019 3:24 | | PM Preliminary: Levi Petersen MD Dictation initiated: Levi Petersen MD | | 06/26/2019 3:23 PM | |IMPRESSION: | | | |Diffuse soft tissue swelling without superimposed acute osseous abnormality or elbow joint effusion. | | | |I have personally reviewed the images and, if necessary, edited the report. I agree with th e report as now presented. | | | |Final signature: Levi Petersen MD 06/26/2019 3:24 PM | |Preliminary: Levi Petersen MD | |Dictation initiated: Levi Petersen MD 06/26/2019 3:23 PM | + + + +---------+ + + | Performing | Address | City/State/Zipcode | Phone Number | | Organization | | | | + +---------+ + + | [facility] | | | | | VOICE RECOGNITION 2 | | | | + +---------+ + + SEDIMENTATION RATE (06/26/2019 2:40 PM PDT) + +--------+ + + + | Component | Value | Ref Range | Performed | Pathologist | | | | | At | Signature | + +--------+ + + + | SEDIMENTATI | 71 (H) | 0 - 15 mm/hr | [facility] | | | ON RATE | | | LABORATORY | | | | | | SERVICES, | | | | | | CORE | | + +--------+ + + + + + | Specimen | + + | Blood - Blood | | (substance) | + + + + + | Narrative | Performed At | + + + | Conditions such as cold agglutinins, anemia(including sickle cell | [facility] | | disease), multiple myeloma, hemolysis, icterus or lipemia may affect | LABORATORY | | sedimentation rate. | SERVICES, CORE | + + + + + + + + | Performing | Address | City/State/Zipcode | Phone Number | | Organization | | | | + + + + + | [facility] | [address] | [place] [address] | | | SERVICES, CORE | [address] | | | + + + + + RAINBOW HOLD TUBE - RED TOP (06/26/2019 2:30 PM PDT) + + | Specimen | + + | Blood - Blood | | (substance) | + + + + + + + | Performing | Address | City/State/Zipcode | Phone Number | | Organization | | | | + + + + + | [facility] | [address] | [place] [address] | | | SERVICES, CORE | [address] | | | + + + + + RAINBOW HOLD TUBE - BLUE TOP (06/26/2019 2:30 PM PDT) + + | Specimen | + + | Blood - Blood | | (substance) | + + + + + + + | Performing | Address | City/State/Zipcode | Phone Number | | Organization | | | | + + + + + | [facility] | [address] | [place] [address] | | | SERVICES, CORE | [address] | | | + + + + + BLOOD BANK HOLD TUBE - DON T PROCESS (06/26/2019 2:30 PM PDT) + + + + + + | Component | Value | Ref Range | Performed | Pathologist | | | | | At | Signature | + + + + + + | SPECIMEN | Sample received with | | [facility] | | | COLLECTED, | adeq label/volume to | | LABORATORY | | | HELD | process | | SERVICES, | | | | | | TRANSFUSION | | | | | | MEDICINE | | + + + + + + + + | Specimen | + + | Blood - Blood | | (substance) | + + + + + + + | Performing | Address | City/State/Zipcode | Phone Number | | Organization | | | | + + + + + | [facility] | [address] | [place] [address] | | | SERVICES, | [address] | | | | TRANSFUSION MEDICINE | | | | + + + + + CBC AND AUTO DIFF (06/26/2019 2:27 PM PDT) + + + + + + | Component | Value | Ref Range | Performed | Pathologist | | | | | At | Signature | + + + + + + | WHITE CELL | 13.04 (H) | 3.50 - 10.80 | [facility] | | | COUNT | | K/cu mm | LABORATORY | | | | | | SERVICES, | | | | | | CORE | | + + + + + + | RED CELL | 4.33 (L) | 4.50 - 6.00 | [facility] | | | COUNT | | M/cu mm | LABORATORY | | | | | | SERVICES, | | | | | | CORE | | + + + + + + | HEMOGLOBIN | 13.2 (L) | 13.5 - 17.5 | [facility] | | | | | g/dL | LABORATORY | | | | | | SERVICES, | | | | | | CORE | | + + + + + + | HEMATOCRIT | 38.6 (L) | 41.0 - 53.0 % | [facility] | | | | | | LABORATORY | | | | | | SERVICES, | | | | | | CORE | | + + + + + + | MCV | 89.1 | 80.0 - 100.0 fL | [facility] | | | | | | LABORATORY | | | | | | SERVICES, | | | | | | CORE | | + + + + + + | MCHC | 34.2 | 32.0 - 36.0 | [facility] | | | | | g/dL | LABORATORY | | | | | | SERVICES, | | | | | | CORE | | + + + + + + | RDW SD | 37.1 | 35.1 - 46.3 fL | [facility] | | | | | | LABORATORY | | | | | | SERVICES, | | | | | | CORE | | + + + + + + | PLATELET | 212 | 150 - 400 K/cu | [facility] | | | COUNT | | mm | LABORATORY | | | | | | SERVICES, | | | | | | CORE | | + + + + + + | MPV | 9.4 (L) | 9.7 - 12.3 fL | [facility] | | | | | | LABORATORY | | | | | | SERVICES, | | | | | | CORE | | + + + + + + | NRBC% | 0.0 | 0.0 - 0.3 % | [facility] | | | | | | LABORATORY | | | | | | SERVICES, | | | | | | CORE | | + + + + + + | NRBC# | 0.00 | 0.00 - 0.02 | [facility] | | | | | K/cu mm | LABORATORY | | | | | | SERVICES, | | | | | | CORE | | + + + + + + | NEUTROPHIL | 77.7 (H) | 50.0 - 70.0 % | [facility] | | | % | | | LABORATORY | | | | | | SERVICES, | | | | | | CORE | | + + + + + + | LYMPHOCYTE | 12.3 (L) | 18.0 - 42.0 % | [facility] | | | % | | | LABORATORY | | | | | | SERVICES, | | | | | | CORE | | + + + + + + | MONOCYTE % | 9.3 (H) | 3.5 - 9.0 % | [facility] | | | | | | LABORATORY | | | | | | SERVICES, | | | | | | CORE | | + + + + + + | EOS % | 0.1 (L) | 1.0 - 3.0 % | [facility] | | | | | | LABORATORY | | | | | | SERVICES, | | | | | | CORE | | + + + + + + | BASO % | 0.2 | 0.0 - 2.0 % | [facility] | | | | | | LABORATORY | | | | | | SERVICES, | | | | | | CORE | | + + + + + + | IG% | 0.4Comment: Increased | 0.0 - 1.0 % | [facility] | | | | immature granulocytes | | LABORATORY | | | | (IG) define a left | | SERVICES, | | | | shift. Immature | | CORE | | | | granulocytes (IG) are an | | | | | | automated count of | | | | | | metamyelocytes, | | | | | | myelocytes and | | | | | | promyelocytes. Bands | | | | | | are not included in the | | | | | | IG count. Bands are | | | | | | included in the | | | | | | neutrophil count. | | | | + + + + + + | NEUTROPHIL | 10.15 (H) | 1.80 - 7.70 | [facility] | | | # | | K/cu mm | LABORATORY | | | | | | SERVICES, | | | | | | CORE | | + + + + + + | LYMPHOCYTE | 1.60 | 1.00 - 4.80 | [facility] | | | # | | K/cu mm | LABORATORY | | | | | | SERVICES, | | | | | | CORE | | + + + + + + | MONOCYTE # | 1.21 (H) | 0.10 - 0.90 | [facility] | | | | | K/cu mm | LABORATORY | | | | | | SERVICES, | | | | | | CORE | | + + + + + + | EOS # | 0.01 | 0.00 - 0.50 | [facility] | | | | | K/cu mm | LABORATORY | | | | | | SERVICES, | | | | | | CORE | | + + + + + + | BASO # | 0.02 | 0.00 - 0.10 | [facility] | | | | | K/cu mm | LABORATORY | | | | | | SERVICES, | | | | | | CORE | | + + + + + + | IG# | 0.05 | 0.00 - 0.10 | [facility] | | | | | K/cu mm | LABORATORY | | | | | | SERVICES, | | | | | | CORE | | + + + + + + + + | Specimen | + + | Blood - Blood | | (substance) | + + + + + | Narrative | Performed At | + + + | Increased immature granulocytes (IG) define a left shift. Immature | [facility] | | granulocytes (IG) are an automated count of metamyelocytes, myelocytes | LABORATORY | | and promyelocytes. Bands are not included in the IG count. Bands are | SERVICES, CORE | | included in the neutrophil count. | | + + + + + + + + | Performing | Address | City/State/Zipcode | Phone Number | | Organization | | | | + + + + + | [facility] | [address] | [place] [address] | | | SERVICES, CORE | [address] | | | + + + + + COMPLETE METABOLIC SET (NA,K,CL,CO2,BUN,CREAT,GLUC,CA,AST,ALT,BILI TOTAL,ALK PHOS,ALB,PROT TOTAL) (06/26/2019 2:27 PM PDT) + +---------+ + + + | Component | Value | Ref Range | Performed | Pathologist | | | | | At | Signature | + +---------+ + + + | GLUCOSE, | 76 | 70 - 99 mg/dL | [facility] | | | PLASMA | | | LABORATORY | | | (LAB) | | | SERVICES, | | | | | | CORE | | + +---------+ + + + | BUN, PLASMA | 13 | 6 - 20 mg/dL | [facility] | | | (LAB) | | | LABORATORY | | | | | | SERVICES, | | | | | | CORE | | + +---------+ + + + | CREATININE | 0.86 | 0.70 - 1.30 | [facility] | | | PLASMA | | mg/dL | LABORATORY | | | (LAB) | | | SERVICES, | | | | | | CORE | | + +---------+ + + + | EGFR | >60 | >60 mL/min | [facility] | | | - | | | LABORATORY | | | LIBYAN | | | SERVICES, | | | | | | CORE | | + +---------+ + + + | EGFR NON | >60 | >60 mL/min | [facility] | | | -FAYE | | | LABORATORY | | | RICAN | | | SERVICES, | | | | | | CORE | | + +---------+ + + + | SODIUM, | 136 | 136 - 145 | [facility] | | | PLASMA | | mmol/L | LABORATORY | | | (LAB) | | | SERVICES, | | | | | | CORE | | + +---------+ + + + | POTASSIUM, | 4.0 | 3.4 - 5.0 | [facility] | | | PLASMA | | mmol/L | LABORATORY | | | (LAB) | | | SERVICES, | | | | | | CORE | | + +---------+ + + + | CHLORIDE, | 103 | 97 - 108 mmol/L | [facility] | | | PLASMA | | | LABORATORY | | | (LAB) | | | SERVICES, | | | | | | CORE | | + +---------+ + + + | TOTAL CO2, | 27 | 21 - 32 mmol/L | [facility] | | | PLASMA | | | LABORATORY | | | (LAB) | | | SERVICES, | | | | | | CORE | | + +---------+ + + + | CALCIUM, | 9.7 | 8.6 - 10.2 | [facility] | | | PLASMA | | mg/dL | LABORATORY | | | (LAB) | | | SERVICES, | | | | | | CORE | | + +---------+ + + + | CALCIUM(ALB | 9.5 | 8.6 - 10.2 | [facility] | | | CORRECTED) | | mg/dL | LABORATORY | | | | | | SERVICES, | | | | | | CORE | | + +---------+ + + + | BILIRUBIN | 0.6 | 0.3 - 1.2 mg/dL | [facility] | | | TOTAL | | | LABORATORY | | | | | | SERVICES, | | | | | | CORE | | + +---------+ + + + | TOTAL | 8.4 (H) | 6.4 - 8.2 g/dL | [facility] | | | PROTEIN, | | | LABORATORY | | | PLASMA | | | SERVICES, | | | (LAB) | | | CORE | | + +---------+ + + + | ALBUMIN, | 4.3 | 3.5 - 4.7 g/dL | [facility] | | | PLASMA | | | LABORATORY | | | (LAB) | | | SERVICES, | | | | | | CORE | | + +---------+ + + + | ALK PHOS | 48 (L) | 53 - 128 U/L | [facility] | | | | | | LABORATORY | | | | | | SERVICES, | | | | | | CORE | | + +---------+ + + + | AST(SGOT) | 15 | <=41 U/L | [facility] | | | | | | LABORATORY | | | | | | SERVICES, | | | | | | CORE | | + +---------+ + + + | ALT (SGPT) | 25 | <=60 U/L | [facility] | | | | | | LABORATORY | | | | | | SERVICES, | | | | | | CORE | | + +---------+ + + + | ANION GAP | 6 | 4 - 11 mmol/L | [facility] | | | | | | LABORATORY | | | | | | SERVICES, | | | | | | CORE | | + +---------+ + + + | ANION | 5 | 4 - 11 mmol/L | [facility] | | | GAP(ALB | | | LABORATORY | | | CORRECTED) | | | SERVICES, | | | | | | CORE | | + +---------+ + + + | POTASSIUM | No Hemo | | [facility] | | | CMNT | | | LABORATORY | | | | | | SERVICES, | | | | | | CORE | | + +---------+ + + + | BILI T CMNT | No Hemo | | [facility] | | | | | | LABORATORY | | | | | | SERVICES, | | | | | | CORE | | + +---------+ + + + | AST CMNT | No Hemo | | [facility] | | | | | | LABORATORY | | | | | | SERVICES, | | | | | | CORE | | + +---------+ + + + + + | Specimen | + + | Blood - Blood | | (substance) | + + + + + | Narrative | Performed At | + + + | GFR is estimated using the MDRD equation recommended by the National | [facility] | | Kidney Disease Education Program. Estimated GFR Interpretive | LABORATORY | | Information: <60 mL/min/1.73 sq m Chronic Kidney | SERVICES, [facility] | | Disease <15 mL/min/1.73 sq m Kidney Failure | | | Estimated GFR greater than 60 mL/min/1.73 sq m is of limited clinical | | | value. The MDRD equation is not valid in the following situations: - | | | Patients under 18 years of age - Severe malnutrition or obesity - | | | Vegetarian diet - Rapidly changing kidney function - Amputees, | | | paraplegics, or other muscle-wasting diseases | | + + + + + + + + | Performing | Address | City/State/Zipcode | Phone Number | | Organization | | | | + + + + + | [facility] | [address] | [place] [address] | | | SERVICES, ADA | [address] | | | + + + + + C-REACTIVE PROTEIN (06/26/2019 2:27 PM PDT) + + + + + + | Component | Value | Ref Range | Performed | Pathologist | | | | | At | Signature | + + + + + + | C-REACTIVE | 120.0 (H) | <10.0 mg/L | [facility] | | | PROTEIN | | | LABORATORY | | | | | | SERVICES, | | | | | | CORE | | + + + + + + + + | Specimen | + + | Blood - Blood | | (substance) | + + + + + + + | Performing | Address | City/State/Zipcode | Phone Number | | Organization | | | | + + + + + | [facility] | [address] | [place] [address] | | | SERVICES, CORE | [address] | | | + + + + + documented in this encounter Visit Diagnoses + + | Diagnosis | + + | Olecranon bursitis of right elbow - Primary Olecranon bursitis | + + | Cellulitis of right upper extremity Cellulitis and abscess of upper arm and forearm | + + documented in this encounter Administered Medications + +---------+ +------+------+------+ | Medication Order | MAR | Action | Dose | Rate | Site | | | Action | Date | | | | + +---------+ +------+------+------+ | ceFAZolin IV 2 gram in dextrose | New Bag | 06/26/20 | 2 g | | | | (RTU) 2 g, intravenous, ONCE, 1 | | 19 5:52 | | | | | dose, 06/26/19 at 1745 | | PM PDT | | | | + +---------+ +------+------+------+ +---+---+ | | | +---+---+ + +-------+ +--------+---+---+ | HYDROmorphone (DILAUDID) | Given | 06/26/20 | 0.5 mg | | | | injection 0.5 mg 0.5 mg, | | 19 6:43 | | | | | intravenous, EVERY 2 HOURS | | PM PDT | | | | | NEEDED, 2 doses, Starting Fri | | | | | | | 06/26/19 at 1552, Until 06/26/19 | | | | | | | at 1843, moderate pain, hold for | | | | | | | sedation or SBP < 100 | | | | | | + +-------+ +--------+---+---+ +-------+ +--------+---+---+ | Given | 06/26/20 | 0.5 mg | | | | | 19 4:30 | | | | | | PM PDT | | | | +-------+ +--------+---+---+ +---+---+ | | | +---+---+ + +---------+ + +---+---+ | lactated ringers IV 1,000 mL, | New Bag | 06/26/20 | 1,000 mL | | | | intravenous, ONCE, 1 dose, Fri | | 19 4:28 | | | | | 06/26/19 at 1630 | | PM PDT | | | | + +---------+ + +---+---+ +---+---+ | | | +---+---+ + +-------+ +------+---+---+ | ondansetron (ZOFRAN) injection | Given | 06/26/20 | 4 mg | | | | 4 mg 4 mg, intravenous, ONCE, 1 | | 19 4:29 | | | | | dose, Sat06/26/19 at 1630 | | PM PDT | | | | + +-------+ +------+---+---+ +---+---+ | | | +---+---+ + +-------+ + +---+---+ | trimethoprim-sulfamethoxazole | Given | 06/26/20 | 1 tablet | | | | (BACTRIM DS,SEPTRA DS) 160-800 mg | | 19 5:49 | | | | | tablet 1 tablet 1 tablet, oral, | | PM PDT | | | | | ONCE, 1 dose, Sat06/26/19 at 1800 | | | | | | + +-------+ + +---+---+ +---+---+ | | | +---+---+ documented in this encounter
--- OUTSIDE RECORDS SUMMARY | ~2020-09-16 | XMS | Clinical Summary ---
Demographics + + + | Address | [address] | | | [place] [address] | + + + | Home Phone | | + + + | Preferred Language | Unknown | + + + | Marital Status | | + + + | Restorationist Affiliation | NRP | + + + | Race | White | + + + | Ethnic Group | Not or | + + + Author + + + | Author | NON REVENUE LOCATIONS | + + + | Organization | NON REVENUE LOCATIONS | + + + | Address | Unknown | + + + | Phone | Unavailable | + + + Support + + +---------+ + | Name | Relationship | Address | Phone | + + +---------+ + | Stefanie Ortiz | ECON | Unknown | | + + +---------+ + Care Team Providers + +------+ + | Care Oven Roaster Name | Role | Phone | + +------+ + | No Pcp Per Patient | PCP | Unavailable | + +------+ + Source Comments [facility] is fully live on both [facility] Ambulatory and [facility] InPatient.[facility] Allergies No Known Allergies Medications + + + +---------+------+------+-------+ | Medication | Sig | Dispensed | Refills | Star | End | Statu | | | | | | t | Date | s | | | | | | Date | | | + + + +---------+------+------+-------+ | acetaminophen 500 | Take 500 mg by mouth | | 0 | | | Activ | | mg oral tablet | every six hours as | | | | | e | | | needed. | | | | | | + + + +---------+------+------+-------+ | oxyCODONE | Take 1 tablet by | 8 | 0 | 08/0 | | Activ | | (immediate release) | mouth every six | tablet | | 01/14 | | e | | 5 mg oral tablet | hours as needed for | | | 19 | | | | | breakthrough pain. | | | | | | + + + +---------+------+------+-------+ Active Problems Not on file Immunizations + + + + | Name | Administration Dates | Next Due | + + + + | DTaP | 09/13/1999, 02/24/1998 | | + + + + | HepB-Peds | 09/13/1999, 02/24/1998 | | + + + + | Hib-HbOC | 09/13/1999, 02/24/1998 | | + + + + | MMR | 09/13/1999 | | + + + + | Polio-Inject | 09/13/1999 | | + + + + | Polio-Oral | 02/24/1998 | | + + + + | Varicella | 09/13/1999 | | + + + + Family History + + +------+ + | Medical History | Relation | Name | Comments | + + +------+ + | No Known Problems | Brother | | | + + +------+ + | No Known Problems | Brother | | | + + +------+ + | Liver Disease | Father | | | + + +------+ + | No Known Problems | Mother | | | + + +------+ + + +------+ + + | Relation | Name | Status | Comments | + +------+ + + | Brother | | Alive | | + +------+ + + | Brother | | Alive | | + +------+ + + | Father | | | | + +------+ + + | Mother | | Alive | | + +------+ + + Social [...] + + Plan of Treatment + + + + + | Health Maintenance | Due Date | Last | Comments | | | | Done | | + + + + + | Influenza (Flu) | | 01/22/20 | | | vaccination (#1) | 0 | 20, | | | | | 10/26/20 | | | | | 09 | | + + + + + | Pneumococcal | Aged Out | | No longer eligible based on patient's age | | vaccination | | | to complete this topic | + + + + + Results Not on filefrom Last 3 Months
--- OUTSIDE RECORDS SUMMARY | ~2020-09-16 | XMS | Encounter Summary ---
Demographics + + + | Address | [address] | | | [place] [address] | + + + | Home Phone | | + + + | Preferred Language | Unknown | + + + | Marital Status | | + + + | Synagogue Affiliation | NRP | + + + | Race | White | + + + | Ethnic Group | Not or | + + + Author + + + | Author | [facility] | + + + | Organization | [facility] | + + + | Address | Unknown | + + + | Phone | Unavailable | + + + Support + + +---------+ + | Name | Relationship | Address | Phone | + + +---------+ + | Stefanie Ortiz | ECON | Unknown | | + + +---------+ + Care Team Providers + +------+ + | Care Technical Documentation Specialist Name | Role | Phone | + +------+ + | No Pcp Per Patient | PCP | Unavailable | + +------+ + Reason for Visit +---------+ + | Reason | Comments | +---------+ + | Abscess | R elbow, onset 4 days ago, started as a white head pt drained, | | | progressed into larger area over the 4 days, unable to straighten | | | arm out, extreme pain, redness, heat, no hx of abscesses, | +---------+ + AUTH/CERT +--------+--------+ + + + + | Status | Reason | Specialty | Diagnoses / | Referred By | Referred To | | | | | Procedures | Contact | Contact | +--------+--------+ + + + + | | | | | | | +--------+--------+ + + + + Encounter Details +--------+---------+ + + + | Date | Type | Department | Care Team | Description | +--------+---------+ + + + | 06/26/ | Office | Family Medicine at | Jose Guadalupe Garrett, | Jay Jay rob | | 2019 | Visit | Anupam Gamboa | [place], [employer] [address] | bursitis of right | | | | [address] | [address] | elbow (Primary Dx) | | | | [place], [place] | [address] [place], [place] | | | | | [address] | [phone] | | | | | [phone] | [phone] | | | | | | | | +--------+---------+ + + + Social History + +-------+ [...] + + + | Blood Pressure | 115/76 | 06/26/2019 12:27 PM | | | | | PDT | | + + + + + | Pulse | 89 | 06/26/2019 12:27 PM | | | | | PDT | | + + + + + | Temperature | 37.3 C (99.2 F) | 06/26/2019 12:27 PM | | | | | PDT | | + + + + + | Respiratory Rate | - | - | | + + + + + | Oxygen Saturation | 99% | 06/26/2019 12:27 PM | | | | | PDT | | + + + + + | Inhaled Oxygen | - | - | | | Concentration | | | | + + + + + | Weight | 95.5 kg (210 lb 8 | 06/26/2019 12:27 PM | | | | oz) | PDT | | + + + + + | Height | 190.5 cm (6' 3") | 06/26/2019 12:27 PM | | | | | PDT | | + + + + + | Body Mass Index | 26.31 | 06/26/2019 12:27 PM | | | | | PDT | | + + + + + documented in this encounter Patient Instructions Patient Instructions Jose Guadalupe Garrett DNP, FNP-C - 06/26/2019 12:20 PM PDTFormatting of t his note might be different from the original. Please go to the [facility] Emergency department for evaluation of olecranon bursitis (infection of the elbow and surrounding structures). I will call and let them know you are on the way. It was a pleasure to meet you! Sincerely, Jose Guadalupe Garrett DNP, FNP-C Bursitis of the Elbow: Care Instructions Your Care Instructions Bursitis is pain and swelling of the bursae. These are sacs of fluid that help your joints move smoothly. Olecranon bursitis is a type of bursitis that affects the back of the elbow. This is sometimes called Yazan elbow because the bump that develops looks like the cartoon character Yazan's elbow. Injury, overuse, or prolonged pressure on your elbow can cause this form of bursitis. Somet imes it happens when people have arthritis. It also can occur for unknown reasons. Treatment may include draining fluid from the bursa with a needle. If your doctor thought t here was infection, he or she may have prescribed antibiotics. You also may get shots of med icine into the bursa to help the swelling go down. Your elbow should get better in a few day s or weeks. Follow-up care is a wall part of your treatment and safety. Be sure to make and go to all ap pointments, and call your doctor if you are having problems. It's also a good idea to know y our test results and keep a list of the medicines you take. How can you care for yourself at home? Take pain medicines exactly as directed. ? If the doctor gave you a prescription medicine for pain, take it as prescribed. ? If you are not taking a prescription pain medicine, ask your doctor if you can take an ov py-hoa-ovcjvbh medicine. ? Do not take two or more pain medicines at the same time unless the doctor told you to. Ma alpa pain medicines have acetaminophen, which is Tylenol. Too much acetaminophen (Tylenol) can be harmful. If your doctor prescribed antibiotics, take them as directed. Do not stop taking them ju st because you feel better. You need to take the full course of antibiotics. If your doctor gave you a sling, an elastic bandage, or a compression sleeve, wear it ex actly as instructed. Put ice or a cold pack on your elbow for 10 to 20 minutes at a time. Try to do this ever y 1 to 2 hours for the next 3 days (when you are awake) or until the swelling goes down. Put a thin cloth between the ice and your skin. After 3 days, you can try heat, or alternate heat and ice. Rest your elbow. Try to stop or reduce any activity that causes pain. Wear elbow pads during physical activity to prevent injury. Do not lean your elbows on tables or armrests. When should you call for help? Call your doctor now or seek immediate medical care if: You have new or worse symptoms of infection, such as: ? Increased pain, swelling, warmth, or redness. ? Red streaks leading from the area. ? Pus draining from the area. ? A fever. Watch closely for changes in your health, and be sure to contact your doctor if: You do not get better as expected. Where can you learn more? To learn more about "Bursitis of the Elbow: Care Instructions", log into your [employer] nt at [email or web address]. You can enter B779 in the "Health Library" search box. Not on MyChart? Review the MyChart section of your After Visit Summary for directions on abel w to sign up. Current as of: August 14, 2018 Content Version: [id number] [employer]. Care instructions adapted under license by [facility]. If you have questions about a medical condition or this instr uction, always ask your healthcare professional. [employer] disclaims any angelito anty or liability for your use of this information. documented in this encounter Progress Notes Jose Guadalupe Garrett DNP, FNP-C - 06/26/2019 12:20 PM PDTFormatting of this note might be dif ferent from the original. Jason Ortiz is a 23 y.o. male patient of No Pcp Per PATIENT who presents to walk in [facility] today with complaints of Chief Complaint Patient presents with Abscess R elbow, onset 4 days ago, started as a white head pt drained, progressed into larger are a over the 4 days, unable to straighten arm out, extreme pain, redness, heat, no hx of absce sses, Subjective HPI Jason Ortiz is a 23 y.o. male who is in Walk In Clinic today with his for evalua tion of right elbow swelling and drainage that has progressed over the last 4 days. Unable t o starignten the arm. He doesn't have any fevers or chills, no vomiting but has nausea. This has never happened before. Has used ice, tylenol. Has never injured this elbow below. Used to be in and other than that has not crawled onhis elbows- this was 3 years ago. Osorio d a white head on elbow and he popped it. Then this developed. PMH: Hydrocele removal PCP- none Review of Systems Constitutional: Negative for chills and fever. HENT: Negative for ear pain and sore throat. Respiratory: Negative for cough. Cardiovascular: Negative for chest pain. Gastrointestinal: Positive for nausea. Negative for vomiting. Musculoskeletal: Positive for joint pain. Skin: Negative for rash. Neurological: Negative for tingling and sensory change. Psychiatric/Behavioral: Negative for substance abuse. Social History Socioeconomic History Marital status: Spouse name: Not on file Number of children: Not on file Years of education: Not on file Highest education level: Not on file Occupational History Occupation: private security Social Needs Financial resource strain: Not on file Food insecurity: Worry: Not on file Inability: Not on file Transportation needs: Medical: Not on file Non-medical: Not on file Tobacco Use Smoking status: Never Smoker Smokeless tobacco: Never Used Substance and Sexual Activity Alcohol use: Never Frequency: Never Drug use: Never Sexual activity: Yes Partners: Female Lifestyle Physical activity: Days per week: Not on file Minutes per session: Not on file Stress: Not on file Relationships Social connections: Talks on phone: Not on file Gets together: Not on file Attends shinto service: Not on file Active member of club or organization: Not on file Attends meetings of clubs or organizations: Not on file Relationship status: Not on file Other Topics Concern Not on file Social History Narrative Lives with and daughter in a 1 bedroom apartment Family History Problem Relation No Known Problems Mother Liver Disease Father No Known Problems Brother No Known Problems Brother Objective Vitals: 06/26/19 1227 BP: 115/76 BP Location: Left upper arm Patient Position: Sitting Pulse: 89 Temp: 37.3 C (99.2 F) TempSrc: Oral SpO2: 99% Weight: 95.5 kg (210 lb 8 oz) Height: 1.905 m (6' 3") PainSc: 10 - Worst Possible Pain PainLoc: Arm (Right) Estimated body mass index is 26.31 kg/m as calculated from the following: Height as of this encounter: 1.905 m (6' 3"). Weight as of this encounter: 95.5 kg (210 lb 8 oz). Facility age limit for growth percentiles is 18 years. Physical Exam Constitutional: He is oriented to person, place, and time. Vital signs are normal. He appea rs well-developed and well-nourished. He does not appear ill. No distress. HENT: Head: Normocephalic. Eyes: Pupils are equal, round, and reactive to light. Neck: Normal range of motion. Cardiovascular: Normal rate, regular rhythm and normal heart sounds. Pulmonary/Chest: Effort normal. No respiratory distress. He has no decreased breath sounds. He has no wheezes. He has no rhonchi. He has no rales. Musculoskeletal: Right elbow: He exhibits decreased range of motion (unable to move joint with both pas sive and active ROM), swelling and effusion. He exhibits no deformity. Tenderness (generaliz ed ) found. Arms: Lymphadenopathy: He has axillary adenopathy. Right axillary: Lateral (tenderness) adenopathy present. Neurological: He is alert and oriented to person, place, and time. Skin: Skin is warm and dry. He is not diaphoretic. Psychiatric: He has a normal mood and affect. His behavior is normal. Judgment and thought content normal. Nursing note and vitals reviewed. Assessment and Plan 1. Septic olecranon bursitis of right elbow; there is concern for this diagnosis (among oth ers, including abscess, cellulitis, osteomyelitis, septic arthritis) given the degree of swe lling, warmth, decreased ROM, and erythema. He does have a mild elevation in temp. Advised f urther workup and possible IV abx in the ED. Will proceed to [facility] ED via private vehicle for evaluation. Report called and patient felt stable to transport with his family. Patient instructions given with AVS. Patient expresses understanding and agrees with plan. Jose Guadalupe Garrett DNP, MOR-C documented in this encounter Plan of Treatment Not on filedocumented as of this encounter Visit Diagnoses + + | Diagnosis | + + | Septic olecranon bursitis of right elbow - Primary | + + documented in this encounter
[~2020-09-16 20:45] MED LIST changes: +BACTRIM DS TAB1 EACH PO
[2020-09-16] MEDS ORDERED: CLINDAMYCIN HC300 MG PO (21:00)
== END 2020-09-16 21:12 | disposition home or self-care (01) ==
LOC: ED 20:45
DX: L03.011 Cellulitis of right finger (principal)
CPT/HCPCS: 99283